=== PATIENT | female | born 1970 | race Caucasian/White ===

== ENCOUNTER 2016-09-25 00:30 | Emergency (ER) | payer OTHER ==
--- NOTE | 2016-09-25 01:28 | ERNOTE ---
Lower Extremity HPI - Narrative Date of Service: 09/25/16 - General Lower Extremities Pain: ankle: left Source: patient, family Exam Limitations: no limitations - Immun/Allergies/Home Medications Immunizations: IMMUNIZATION HX Immunizations Up to Date Yes History of Influenza Vaccine Yes Hx Pneumococcal Vaccination Yes Allergies/Adverse Reactions: Allergies Allergy/AdvReac Type Severity Reaction Status Date / Time coconut Allergy Verified 09/25/16 00:40 green tea Allergy Verified 09/25/16 00:40 lisinopril Allergy Verified 09/25/16 00:40 metoprolol Allergy Verified 09/25/16 00:41 naproxen Allergy Verified 09/25/16 00:40 pomegranate Allergy Verified 09/25/16 00:40 lovastatin AdvReac Intermediate Shortness Verified 09/25/16 00:40 of Breath metformin AdvReac Intermediate Diarrhea Verified 09/25/16 00:40 oxycodone [Oxycodone] AdvReac Intermediate Hives Verified 09/25/16 00:40 gensing Allergy Uncoded 09/25/16 00:40 Home Medications: HOME MEDICATIONS Gabapentin 1,200 mg PO BID 04/25/14 [Last Taken Unknown] Insulin Glargine,Hum.rec.anlog [Lantus] 100 units SC BID 04/25/14 [Last Taken Unknown] glipiZIDE [Glucotrol] 10 mg PO TID PRN 04/25/14 [Last Taken Unknown] Fenofibrate Nanocrystallized [Tricor] 145 mg PO HS 01/26/15 [Last Taken Unknown] Chlorthalidone [Hygroton] 50 mg PO DAILY 04/21/15 [Last Taken Unknown] Cholecalciferol (Vitamin D3) [Vitamin D] 6,000 unit PO DAILY 10/28/15 [Last Taken Unknown] traMADol HCL [Ultram] 50 mg PO BID PRN 10/29/15 [Last Taken Unknown] Methenamine Mandelate 1 gm PO BID 09/25/16 [Last Taken Unknown] Terbinafine HCl [Lamisil] 250 mg PO DAILY 09/25/16 [Last Taken Unknown] Valsartan 320 mg PO DAILY 09/25/16 [Last Taken Unknown] traMADol HCL [Ultram] 50 mg PO Q8H PRN #25 tablet 09/25/16 [Last Taken Unknown] - History of Present Illness Narrative: STATES SHE HEARD A POP AND HAD PAIN IN HER LEFT ANKLE WHILE AT WORK [employer] ( ABOUT 2340). IT REMINDS HER ABOUT WHAT HAPPENED IN 2014 WHEN SHE SAYS SHE HAD ACHILLES INJURY TO THE RIGHT LEG. SHE HAS NOT BEEN ABLE TO BEAR WEIGHT ON THE LEFT. SHE TARIQ FALL OR OTHER INJURY TONIGHT. SAYS SHE WAS JUST WALKING ON FLAT FLOOR WHEN IT HAPPENED. Occurred: just prior to arrival Location of Incident: work Method of Injury: Reports: no apparent injury Associated Symptoms: Reports: unable to bear weight Prior Treament: Reports: similar symptoms before - BUT ON THE OTHER ANKLE. Review of Systems - Review of Systems Constitutional: Present: See HPI Musculoskeletal: Present: See HPI Skin: Present: no symptoms reported Neurological: Present: no symptoms reported Psych: Present: no symptoms reported All Other Systems: All systems neg except as marked - Patient's Past Medical History Patient History - Medical: Diabetes Type 2 Insulin Dependent, Obesity, Renal Failure Patient History - Cardiac/Respiratory: Hypertension, Hyperlipidemia Patient History - Cancer: No Hx of Cancer Patient History - Surgical Procedures: Cholecystectomy, Other Patient History - Other: None LMP (Calendar): 10/14/15 - Social History Living Situations: home Abuse History: No History of abuse Psych History: No pertinent hx Smoking Status: Never smoker Alcohol Use: none Drug Use: none - Immunizations Immunizations Up to Date: Yes Hx Pneumococcal Vaccination: Yes History of Influenza Vaccine: Yes Physical Exam - Physical Exam General Appearance: Present: alert, moderate distress Peripheral Pulses: N=norm/S=strong/W=weak/B=bound/A=absent: Dorsalis-pedis (R): Normal, Dorsalis-pedis (L): Normal Extremity Exam: Present: decreased range of motion - PT WITH SWOLLEN LEFT ANKLE AREA WITH PAIN AND TENDERNESS TO DISTAL PORTION OF THE LEFT ACHILLES BUT NO SOFTENING. SHE STILL HAS ACTIVE DOSIFLEXION WITH CALF SQUEEZE BUT SAYS SHE CAN NOT DO SO WITH ACTIVE ATTEMPTS EVER SINCE 2339 WHEN THIS HAPPENED. THERE IS NO OBVIOUS BONY DEFORMITY AND SHE IS NOT TENDER TO MEDIAL OR LATERAL MALLEOLAR TAPPING AND PALPATION. THERE IS NO ANKLE OF FOOT DISCOLOARTION AT PRESENT AND THE FOOT AND LEG ARE WARM WITH GOOD D. PEDIS PULSE AND CAPILLARY REFILL. , joint swelling Skin Exam: Present: normal color, warm/dry ED Progress - Vital Signs Vital Signs: Vital Signs 09/25/16 00:33 Temperature 36.5 C Pulse Rate 96 Respiratory 20 Rate Blood Pressure 191/105 O2 Sat by Pulse 100 Oximetry - X-Ray X-Ray #1 X-Ray: ankle - LEFT ANKLE WITH NO SIGN OF BONY ABNL. THERE IS AN OBVIOUS NEW CALCIFICATION TO THE INFERIOR ACHILLES AREA THAT WAS NOT PRESENT ON A OCTOBER 2015 XRAY OF THE SAME ANKLE. A POSTERIOR CALCANEUS BONE SPUR IS SEEN ON BOTH STUDIES THOUGH THE PRESENT STUDY SHOWS A SMALLER SPUR SUGGESTING THE CALCIFICATION REPRESENT A PIECE THAT HAS BEEN AVULSED. THIS IS A SIMILAR PICTURE TO THAT ON THE 2014 EXAM OF HER RIGHT ANKLE WHEN TAHT ACHILLES WAS INJURED. Interpretation: Interp. by me - Progress/Reassessment Chief Complaint: Lower Extremity Pain/ Injury Progress:: Unchanged Plan - Plan Plan: PT STATES THAT SHE HAS TO [facility] IN [facility] TO GET AN ORTHOPEDIC REFERRAL THAT IS WHAT SHE WAS TOLD ON HER PRIOR ANKLE INJURY TO THE RIGHT SIDE. Departure Clinical Impression: Achilles rupture, left Qualifiers: Encounter type: initial encounter Qualified Code(s): S86.012A - Strain of left Achilles tendon, initial encounter - Departure Disposition: Home Follow Up Needed Condition: Fair Instructions: Partial (Incomplete) Achilles Tendon Rupture Additional Instructions: USE THE WALKING BOOT WHEN UP AND AROUND . SINCE YOU SAY YOU CAN NOT USE CRUTCHES YOU MAY NEED TO ARRANGE FOR WALKER ( RX GIVEN TO THE PATIENT) OR WHEELCHAIR USE UNTIL YOU ARE ABLE TO AMBULATE BETTER. ELEVATE LEFT ANKLE AND USE ICE FOR 30 MINS EVERY 4 HOURS FOR THE NEXT TWO DAYS. USE PLAIN TYLENOL ( 650 MG UP TO EVERY 4-6 HOURS) FOR ROUTINE PAIN. USE THE TRAMADOL FOR EXTRA PAIN . MAKE SURE YOU FOLLOW UP WITH THROUGH [facility], CALL IN THE MORNING , TO MAKE ARRANGEMENTS FOR FOLLOW UP AND ORTHOPEDIC REFERRAL. Prescriptions: traMADol HCL [Ultram] 50 mg PO Q8H PRN #25 tablet PRN Reason: Pain
--- OUTSIDE RECORDS SUMMARY | 2016-09-25 01:35 | XMS REPORT | Continuity of Care Document ---
:1970 Author Organization [facility] ([facility]) Address [address] [place] [address] Phone [phone] Care Team Providers Name Role Phone JesssamuelLazaro Primary Care Provider [phone] Source Comments This disclosure is being made pursuant to the Care Everywhere program, applicable federal and state laws, and may not contain all informaitonavailable regarding this patient.[facility] ([facility]) Active Allergies and Adverse Reactions Allergen Noted Date Severity Reactions Comments Coconut 11/15/2015 Urticaria (Hives) Hydrocodone 11/10/2010 Rash Lisinopril 10/17/2015 OTHER Causes dry cough Lovastatin 08/19/2016 OTHER Metformin 08/23/2014 Nausea & Vomiting Metoprolol 06/24/2016 Bronchospasm Naproxen 05/16/2015 Rash Hand turned colors Other Agent 10/17/2015 Urticaria (Hives) [place], [place] Other [place]-3s 07/27/2014 Dizziness novastatin Current Medications Prescription Sig. Disp. Refills Start Date End Date Status insulin glargine inject 35 Units 12 Vial 11 11/10/2010 Active (LANTUS) 100 unit/mL subcutaneously Every injection morning. Indications: Type 2 Diabetes Mellitus blood glucose meter 1 Each once. 1 Each 0 01/15/2011 Active (FREESTYLE FREEDOM Indications: LITE) Diabetes Mellitus FREESTYLE lancets Use twice daily or 150 Each 01/15/2011 Active as directed. Indications: Diabetes Mellitus glucose blood test Use to test blood 150 Each 12 01/15/2011 Active strips (FREESTYLE sugar twice daily or LITE) as directed. Indications: Diabetes Mellitus glipiZIDE PO Take 10 mg by mouth Active 2 times daily FENOFIBRATE Take by mouth. Active NANOCRYSTALLIZED (TRICOR PO) gabapentin PO Take by mouth. Active chlorthalidone 25 mg Take 50 mg by mouth Active tablet daily. METHENAMINE HIPPURATE Active PO cholecalciferol 50,000 Take 1 capsule by Active unit capsule mouth every week. 2000 mg insulin aspart mix Inject 9 Units Active (NovoLOG 70-30 subcutaneously 2 FLEXPEN) 100 unit/mL times daily with injection pen meals. 9 units twice daily if its 100 or above valsartan 320 mg Take 320 mg by mouth Active tablet daily. ciprofloxacin HCl 500 Take 500 mg by mouth Active mg tablet 2 times daily. Active Problems Problem Noted Date Proliferative diabetic retinopathy with macular edema associated with type 08/2015 2 diabetes mellitus Cortical age-related cataract 04/30/2016 Cataract 04/02/2016 Type 2 diabetes mellitus with both eyes affected by severe 04/02/2016 nonproliferative retinopathy and macular edema, with long-term current use of insulin Overview: Formatting of this note may be different from the original. Right Eye Left Eye Time To Recurrence: Time To Recurrence: Date VA (D cc) CMT Status Procedure VA (D cc) CMT Status Procedure Cmts 04/02/2016 20/50 cc Avastin 731284-2 20/60+2 cc Avastin 551510-5 04/30/2016 20/40 -3 cc Avastin 167620-4 20/40 -2 cc Avastin [id number] 05/27/2016 20/30 cc Avastin [id number] 20/40 -1 cc Avastin 082534-5 06/24/2016 20/40 +2 cc Avastin 083273-5 20/40 -1 cc Avastin 451585-6 07/22/2016 20/25-1 cc Avastin 375944-5 20/30+1 cc Avastin 058711-9 08/19/2016 20/25 cc Avastin 647998-2 20/30 cc Avastin [id number] 09/23/2016 20/50-2 cc Avastin 126945-4 20/70-2 cc Avastin 810793-2 Vitreous hemorrhage 12/19/2015 Scotoma involving central area 12/19/2015 Vitreomacular adhesion of left eye 01/11/2015 Astigmatism of both eyes 07/27/2014 Type 2 diabetes mellitus, uncontrolled 11/10/2010 Most Recent Encounters Date Type Specialty Providers Description 09/23/2016 Office Visit Ophthalmology - Chief Comp: Patient Specialty Reported Reason For Visit 09/23/2016 Office Visit Ophthalmology - Noam Sparrow MD Dx: Type 2 diabetes Specialty Erick William, mellitus with both eyes MD affected by severe nonproliferative retinopathy and macular edema, with long-term current use of insulin (Primary Dx) 08/19/2016 Office Visit Ophthalmology - Chief Comp: Patient Specialty Reported Reason For Visit 08/19/2016 Office Visit Ophthalmology - Default, Other Dx: Type 2 diabetes Specialty Billg - Defo mellitus with both eyes [place], affected by severe Kanchan Ramirez MD nonproliferative retinopathy and macular edema, with long-term current use of insulin (Primary Dx) 08/19/2016 Office Visit Ophthalmology - Default, Other Chief Comp: Patient Specialty Billg - Defo Reported Reason For Visit 07/22/2016 Office Visit Ophthalmology - Chief Comp: Patient Specialty Reported Reason For Visit 07/22/2016 Office Visit Ophthalmology - Default, Other Dx: Type 2 diabetes Specialty Billg - Defo mellitus with both eyes [place], affected by severe Kanchan Ramirez MD nonproliferative retinopathy and macular edema, with long-term current use of insulin (Primary Dx) Immunizations Name Dates Previously Given Next Due Pneumococcal Polysaccharide, PPSV23 (Pneumovax 23) 01/15/2011 Tdap 01/15/2011 Social History Tobacco Use Types Packs/Day Years Used Date Never Smoker Smokeless Tobacco: Never Used Tobacco Cessation:Counseling Given: Yes Comments: Alcohol Use Drinks/Week oz/Week Comments Yes Rare Last Filed Vital Signs Vital Sign Reading Time Taken Blood Pressure 151/91 04/18/2015 2:18 PM CDT Pulse 88 01/15/2011 10:49 AM CDT Temperature 36.3 C (97.3 F) 01/15/2011 10:49 AM CDT Respiratory Rate 16 11/30/2010 11:17 PM CDT Height 1.626 m (5' 4") 01/15/2011 10:49 AM CDT Weight 89.132 kg (196 lb 8 oz) 01/15/2011 10:49 AM CDT Body Mass Index 33.71 01/15/2011 10:49 AM CDT Oxygen Saturation 99% 11/30/2010 11:17 PM CDT Plan of Care Date Type Specialty Providers Description 10/21/2016 Appointment Ophthalmology - Default, Other Chief Comp: Patient Specialty Billg - Defo Reported Reason For [address] [place] [address] [phone] (Fax) Health Maintenance Due Date Last Done Comments Hepatitis B Vaccine (1 of 3 - 1970 Primary Series) MMR Vaccine 12/03/1989 Cervical Cancer Screening 12/03/2001 DIABETIC: Hemoglobin A1C 07/18/2011 01/15/2011 Mammogram 2011 DIABETIC: Cholesterol 01/16/2012 01/15/2011 DIABETIC: Foot Exam 01/16/2012 01/15/2011 Diabetic: Hdl 01/16/2012 01/15/2011 Diabetic: Ldl 01/16/2012 01/15/2011 DIABETIC: Microalbumin 01/16/2012 01/15/2011 DIABETIC: Triglycerides 01/16/2012 01/15/2011 Influenza Vaccine: Seasonal 01/27/2016 (#1) DIABETIC: Retinal Eye Exam 09/23/2017 09/23/2016, Additional history exists 08/19/2016, 07/22/2016 Td Vaccine 01/15/2021 01/15/2011 Pneumococcal Vaccine Completed 01/15/2011 Tdap Vaccine Completed 01/15/2011 Results from Last 3 Months EYE PROC - INTRAVITREAL INJECTION (09/23/2016 3:26 PM)Only the most recent of3 resultswithin the time period is included. Narrative Erick William MD 09/23/20163:26 PM [facility] Injection Clinic Current Date: 09/23/2016 Subjective: Marie Bryant is a 45 y.o. female with a history of Type 2 diabetes mellitus with both eyes affected by severe nonproliferative retinopathy and macular edema, with long-term current use of insulin. History of Present Illness: Marie Bryant is a 45 y.o. Female MD directed return to injection clinic.Both eyes Avastin Patient reports her vision is the same. Patient Active Problem List Diagnosis Date Noted Proliferative diabetic retinopathy with macular edema associated with type 2 diabetes mellitus 04/30/2016 Cortical age-related cataract 04/30/2016 Cataract 04/02/2016 Type 2 diabetes mellitus with both eyes affected by severe nonproliferative retinopathy and macular edema, with long-term current use of insulin 04/02/2016 Vitreous hemorrhage 12/19/2015 Scotoma involving central area 12/19/2015 Vitreomacular adhesion of left eye 01/11/2015 Astigmatism of both eyes 07/27/2014 Type 2 diabetes mellitus, uncontrolled 11/10/2010 Injection History: Injection and Visual Acuity Log Date Injection OD VA sc VA cc Injection OS VA sc VA cc 09/23/2016 Fktytpi69/50-2 20/70-2 08/19/2016 Zorlsvi26/25 20/30 07/22/2016 Pokbfus91/25-1 20/30+1 06/24/2016 Sjnzady17/40 +2 20/40 -1 06/01/2016 20/40-+1 20/40 05/27/2016 Jvhiaai90/30 20/40 -1 04/30/2016 Goweoou60/40 -3 20/40 -2 04/02/2016 Ggwvczy46/50 20/60+2 02/18/2016 Ltgergu24/25-2 20/30-2 01/17/2016 Fkylkaq38/40 20/40 12/19/2015 Epfdpyo17/50 -2 20/40 11/15/2015 20/25-2 20/30+1 10/17/2015 20/30+2 20/400 05/16/2015 Yfmslqs33/25+2 20/50-2 04/18/2015 Yttvvmqa75/70 20/50 -1 03/22/2015 Cpuinmuj02/40 -1 20/250 02/08/2015 20/40 20/70 01/11/2015 20/40 -3 20/30 10/19/2014 20/30+2 20/25-2 09/14/2014 20/20 -2 20/25 -2 08/23/2014 20/20 20/40 07/27/201420/30 -2 20/20 -2 NI 20/50 -1 20/25 -1 Review of Systems: Negative except per HPI Objective: Base Eye Exam Visual Acuity (Snellen - Linear) Right Left Dist cc 20/50-2 20/70-2 Dist ph cc NI NI Correction:Glasses Tonometry (Tonopen, 2:40 PM) Right Left Pressure 19 15 Neuro/Psych Oriented x3:Yes Mood/Affect:Normal Dilation Both eyes:0.5% Mydriacyl, 2.5% Phenylephrine @ 2:40 PM Slit Lamp and Fundus Exam Slit Lamp Exam Right Left Vitreous posterior vitreous detachment, no AV cell trace anterior RBCs, vitreous debris Fundus Exam Right Left Disc No NVD No NVD, fibrosis extending from disc to arcades C/D Ratio 0.3 0.3 Macula Scattered exudates and MAs/IRH Scattered exudates and MAs/IRH, fibrosis along arcades Vessels Arteriole attenuation Arteriole attenuation Oct Macula 09/23/2016 OD; 369 (288). Exudates temporally with thickening and increased cysts,scant epiretinal membrane over nasal parafovea, normal foveal contour.OS: 443 (288). Mild epiretinal membrane covering large area of macula,normal foveal contour. New IRF, no SRF Assessment / Plan: 1. PDR with DME OU, uncontrolled DM2, improving with insulin: S/p PRP OS 08/23/14, OD 09/14/14, OU 10/19/14; OU 01/11/15, OU 02/08/15, OU 01/17/16 . Has epiretinal fibrosis OS. OD new VH 12/16/2015: s/p fill in PRP - s/p Avastin 08/19/16 (5w), VA decreased/OCT new fluid - Previously tried extending out to 6 weeks, but she had a large increase in CME - recurrent CME Avastin 5w (09/23/16) OS VH 10/17/15 - s/p Avastin 08/19/16 (5w), VA decreased/OCT new fluid - Previously tried extending out to 6 weeks, but she had a large increase in CME - recurrent CME Avastin 5w (09/23/16) 2. Cataracts 3. Central scotoma OS. Macular ischemia on 07/2015 FA but OCTA looks similar for superficial and deep plexus between OD and OS done 11/15/15. Previous HVF showed global depression but no significant central pattern deviation. Mild rim artifact both eyes. -Observe F/u 4 weeks with OCT OU injection clinic, may consider switching to Eylea OU if not resolved. Would keep at 4 weeks because multiple recurrences at 5 weeks on Avastin. F/u with Dr. Sofia Staff Involved Resident/Fellow without Staff (non-primary care) PROCEDURE: Intravitreal injection Medication Injected: Intravitreal injection of 1.25 mg Avastin left eye and 1.25 mg Avastin right eye. Pre-procedure Diagnosis:Type 2 diabetes mellitus with both eyes affected by severe nonproliferative retinopathy and macular edema, with long-term current use of insulin Preparation:5% Sterile PVP Antibiotic Drops:Gentamicin 0.3% administered both pre and post-procedure to injected eye/s Anesthesia: Topical Proparacaine 0.5% and Subconjunctival 2% Lidocaine Complications:None Post-injection Exam:VA > or=Hand Motions Procedure Comments: Patient was given endophthalmitis return precautions including pain and decreased vision and was instructed to return to clinic if any concerns. I was present for the entire procedure. Erick William MD Vitreoretinal Surgery Fellow Department of Ophthalmology [facility] OCT MACULA (09/23/2016 2:57 PM)Only the most recent of3 resultswithin the time period is included. Narrative OD; 369 (288). Exudates temporally with thickening and increased cysts, scant epiretinal membrane over nasal parafovea, normal foveal contour. OS: 443 (288). Mild epiretinal membrane covering large area of macula, normal foveal contour. New IRF, no SRF
[2016-09-25 05:16] VITALS: BP 180/88
== END 2016-09-25 01:55 | disposition home or self-care (01) ==
LOC: ER 00:30
PROC: 2W3MX1Z Immobilization of Left Lower Extremity using Splint (ICD-10-PCS; principal; 2016-09-25)
DX: S86.012A Strain of left Achilles tendon, initial encounter (principal); E11.9 Type 2 diabetes mellitus without complications; Z79.4 Long term (current) use of insulin; E78.5 Hyperlipidemia, unspecified; I10 Essential (primary) hypertension; X50.1XXA Overexertion from prolonged static or awkward postures, initial encounter; Y93.01 Activity, walking, marching and hiking; Y99.0 Civilian activity done for income or pay